=== PATIENT | male | born 1935 | race Caucasian/White ===

== ENCOUNTER → 2020-02-15 | Outpatient (CLI) | payer MEDICARE, BC ==
--- NOTE | 2020-02-15 09:36 | US ---
EXAMINATION TYPE: US abdomen complete DATE OF EXAM: 02/15/2020 COMPARISON: NONE CLINICAL HISTORY: R10.13 Epigastric Pain, R10.11 RUQ. Pain. EXAM MEASUREMENTS: Liver Length: 13.0 cm Gallbladder Wall: 0.2 cm CBD: 0.5 cm Spleen: 10.5 cm Right Kidney: 9.8 x 5.0 x 6.3 cm Left Kidney: 11.1 x 4.5 x 6.4 cm Pancreas: Obscured by bowel gas Liver: Multiple cystic appearing lesions seen. Largest measured. 1- septated, right lobe = 1.5 x 1 .2 x 1.3 cm. 2- right lobe adjacent to GB = 1.2 x 1.1 x 0.9 cm. Gallbladder: Mobile echogenic foci seen Evidence for sonographic Julio's sign: neg CBD: wnl Spleen: wnl Right Kidney: Multiple tiny nonshadowing echogenic foci seen Left Kidney: wnl Upper IVC: wnl Abd Aorta: No AAA visualized, portions obscured by overlying bowel gas IMPRESSION: 1. Cholelithiasis. No changes for acute cholecystitis are evident. 2. Multiple hepatic cysts. These are not all simple cysts. Monitoring with ultrasound is recommended. 3. Nonobstructing right renal stones.
== END | disposition home or self-care (01) ==
LOC: RADUSWWP 06:58
PROVIDERS: ATTEND Family Medicine
DX: K80.20 Calculus of gallbladder without cholecystitis without obstruction (principal); K76.89 Other specified diseases of liver; N20.0 Calculus of kidney
CPT/HCPCS: 76700

== ENCOUNTER → 2023-09-29 | Outpatient (CLI) | payer MEDICARE, BC ==
--- NOTE | 2023-09-29 09:00 | XR ---
EXAMINATION TYPE: XR chest 2V DATE OF EXAM: 09/29/2023 COMPARISON: NONE TECHNIQUE: PA and lateral views submitted. HISTORY: Chest congestion FINDINGS: Emphysematous changes are seen with ectasia of the aorta and atherosclerotic change. Bilateral lower lobe infiltrate. No sizable pleural effusion or pneumothorax. No overt failure. Diffuse osteopenia, a rthropathy of the shoulders and degenerative change of the spine. IMPRESSION: 1. COPD with bibasilar atelectasis or early infiltrate.
== END | disposition home or self-care (01) ==
LOC: RADXRMAIN 08:41
PROVIDERS: ATTEND Internal Medicine
DX: J44.9 Chronic obstructive pulmonary disease, unspecified (principal); R09.89 Other specified symptoms and signs involving the circulatory and respiratory systems
CPT/HCPCS: 71046

== ENCOUNTER 2024-09-20 08:14 | Day surgery (SDC) | payer MEDICARE, BC ==
[~2024-09-20 08:14] MED LIST: LIDOCAINE 1% (10MG/ML) FOR IV START INTRADERMA PRN
[2024-09-20] MEDS: IV FLUID CONTINUATION 1,000 ML IV ONE (09:24)
[2024-09-20 09:35] VITALS: TEMP 97.3
[2024-09-20] MEDS: LACTATED RINGERS 1,000 ML IV SCH (09:35)
[2024-09-20] MEDS ORDERED: PROPOFOL 10 MG/ML 20 ML VIAL IV ONE (09:46)
--- NOTE | 2024-09-20 09:59 | P.PCN ---
Date of Procedure: 09/20/24 Procedure(s) Performed: BRIEF HISTORY: Patient is a 89-year-old pleasant white male scheduled for an elective flexible sigmoidoscopy as a part of follow-up of large sigmoid colon polyp that was noted on a routine colonoscopy done in May 2024 for evaluation of rectal bleeding. He was noted to have a 2.5 cm broad-based sigmoid colon polyp which could not be completely removed and biopsies revealed serrated adenoma. He is scheduled for a follow-up sigmoidoscopy in 3 months. PROCEDURE PERFORMED: Flexible sigmoidoscopy with cold biopsy PREOPERATIVE DIAGNOSIS: Follow-up large sigmoid colon polyp. IV sedation per Anesthesia. PROCEDURE: After informed consent was obtained, the patient, was brought into the endoscopy unit. IV sedation was administered by Anesthesia under continuous monitoring. Digital rectal examination was normal. Initially the Olympus CF-160 flexible video colonoscope was then inserted in the rectum, gradually advanced into the splenic flexure. Mucosa of the descending colon, sigmoid colon, and rectum appeared normal. There was a 3 mm residual polyp noted at the site of previous polypectomy in the sigmoid colon at 30 cm from the anal verge and this was removed by biopsy. Extensive left-sided diverticulosis seen. Retroflexion was performed in the rectum and no lesions were seen. The patient tolerated the procedure well. IMPRESSION: 3 mm residual sigmoid colon polyp status post cold biopsy Extensive left-sided diverticulosis RECOMMENDATIONS: Findings of this examination were discussed with the patient as well as his family. He was advised to follow with the biopsy results. Continue with a high-fiber diet and fiber supplements on a regular basis. Follow-up in the office as needed.
[2024-09-20 10:07] VITALS: RESP 16
[2024-09-20 10:20] VITALS: BP 135/82; PULSE 85
== END 2024-09-20 10:30 | disposition home or self-care (01) ==
LOC: ORWHC2ENDO 08:14
PROVIDERS: ATTEND Internal Medicine Gastroenterology
DX: K63.5 Polyp of colon (principal); K57.30 Diverticulosis of large intestine without perforation or abscess without bleeding; I10 Essential (primary) hypertension; E78.5 Hyperlipidemia, unspecified; J45.909 Unspecified asthma, uncomplicated; I49.8 Other specified cardiac arrhythmias; G62.9 Polyneuropathy, unspecified; Z85.51 Personal history of malignant neoplasm of bladder; Z87.891 Personal history of nicotine dependence; Z79.01 Long term (current) use of anticoagulants; Z79.899 Other long term (current) drug therapy; Z86.0100 Personal history of colon polyps, unspecified
CPT/HCPCS: 88305; 45331; J2704